=== PATIENT | female | born 1985 | race Native Hawaiian/Other Pacific Islander ===

== ENCOUNTER 2019-11-22 07:54 | Outpatient (CLI) | payer BC | END 2019-11-22 20:40 | disposition home or self-care (01) | LOC: LAB 07:54 | DX: R10.9 Unspecified abdominal pain (principal); R11.0 Nausea; R63.0 Anorexia | CPT/HCPCS: 36415; 82150; 83690 ==

== ENCOUNTER 2019-11-23 08:15 | Outpatient (CLI) | payer BC | END 2019-11-23 21:27 | disposition home or self-care (01) | LOC: US 08:15 | DX: R11.0 Nausea (principal); R10.9 Unspecified abdominal pain ==

== ENCOUNTER 2021-11-06 09:35 | Outpatient (CLI) | payer BC | END 2021-11-06 20:57 | disposition home or self-care (01) | LOC: US 09:35 | PROVIDERS: ATTEND Nurse Practitioner Family | DX: L65.9 Nonscarring hair loss, unspecified (principal); E05.90 Thyrotoxicosis, unspecified without thyrotoxic crisis or storm; R63.4 Abnormal weight loss ==